=== PATIENT | female | born 1965 | race Caucasian/White ===

== ENCOUNTER 2020-05-28 16:54 | Emergency (ER) | payer OTHER, SELFPAY ==
--- NOTE | ~2020-05-28 | CT_ITS ---
EXAMINATION: CT brain wo con DATE: 05/28/2020 17:33 INDICATION: Fall. Laceration to back of head. TECHNIQUE: Computed tomography (CT) of the head was performed without intravenous contrast. The mA wa s adjusted according to patient size. Iterative reconstruction technique was employed. Exam dose: 60 5.33 mGy-cm total exam DLP. COMPARISON: None FINDINGS: No intracranial mass lesion or hemorrhage, midline shift or mass effect. No subdural or epi dural hematoma. Orbital contents are unremarkable. Included mastoid air cells and paranasal sinuses are unremarkable. No fracture or bone destruction of the cranial vault. IMPRESSION: No significant abnormality Reviewed, dictated and finalized at [facility]. Reviewed, dictated and finalized at [facility]. IMPRESSION: No significant abnormality
[2020-05-28 16:51] VITALS: BP 121/71; PULSE 107; RESP 18; TEMP 37.4; O2SAT 97
--- NOTE | 2020-05-28 17:00 | ED.FALL ---
HPI - Fall General Chief Complaint: Fall Stated Complaint: Fall - head lac Source: patient Mode of arrival: EMS Limitations: no limitations History of Present Illness HPI Narrative: Patient is a 54-year-old female who presents to emergency department for evaluation of posterior head injury noting that she slipped fell striking the head denies loss of consciousness syncope notes posterior headache denied cervical spine tenderness or any other spinal or extremity injury patient notes laceration to the posterior scalp denies anticoagulant use. Related Data Home Medications Medication Instructions Recorded Confirmed insulin glargine [Basaglar KwikPen 15 unit SUBCUT BID 05/28/20 05/28/20 U-100 Insulin] simvastatin 20 mg PO HS 05/28/20 Allergies Allergy/AdvReac Type Severity Reaction Status Date / Time codeine Allergy Rash Verified 05/28/20 17:03 Review of Systems Review of Systems: All systems reviewed & are unremarkable except as noted in HPI and below PMFSH Past Medical History Medical History (Updated 05/28/20 @ 18:06 by Ez Saldivar PA-C) Diabetes mellitus Social History Social History (Updated 05/28/20 @ 17:01 by Ez Saldivar PA-C) Smoking status: Never smoker Gender identity (if verbalized by the patient): Female Exam Narrative: Exam Narrative: GENERAL: Well-appearing, well-nourished, and in no acute distress. HEAD: Normocephalic, 1 cm posterior scalp laceration EYES: PERRLA and EOMI. ENT: Nares clear, no rhinorrhea or epistaxis. Mucous membranes moist. Oropharynx without tonsillar hypertrophy exudate or other lesions. NECK: Supple. No adenopathy or masses. CHEST: Clear to auscultation. No respiratory distress. No wheezes rales or rhonchi HEART: Regular rate and rhythm. No murmur heard. EXTREMITIES: Normal range of motion. No edema. No cervical thoracic or lumbar tenderness SKIN: Warm, dry, no rash. NEURO: No focal deficits. Alert and oriented x3. Cranial nerves II through XII grossly intact PSYCH: Normal mood and affect. Course Vital Signs Vital signs: Vital Signs Temperature 99.4 F 05/28/20 16:51 Pulse Rate 107 H 05/28/20 16:51 Respiratory Rate 18 05/28/20 16:51 Blood Pressure 121/71 05/28/20 16:51 Pulse Oximetry 97 05/28/20 16:51 Temperature 99.4 F 05/28/20 16:51 Pulse Rate 107 H 05/28/20 16:51 Respiratory Rate 18 05/28/20 16:51 Blood Pressure 121/71 05/28/20 16:51 Pulse Oximetry 97 05/28/20 16:51 Procedures Laceration Laceration 1: Date: 05/28/20 Time: 18:05 Site: scalp Size (cm): 1 Description: linear Depth: simple, single layer ====== Skin Level ====== Skin layer closed with: sunni ====== Subcutaneous Layer ====== ====== Muscle Layer ====== ====== Tendon Layer ====== MDM - Fall MDM Narrative Medical decision making narrative: Patient in the room in no distress aware of case findings treatment plan and diagnosis agreeing to follow-up as direct Discharge Plan Discharge Clinical Impression: Head injury, Laceration of scalp Patient Disposition: Home, Self-Care Condition: Stable Instructions: Antibiotic Form, Laceration (ED), Head Injury (ED) Additional Instructions: Keep wound clean and dry. Do not soak, take baths, or swim until wound is completely healed. If any signs of infection such as redness, swelling, increasing pain, drainage of purulent discharge, streaks up your extremity develop, seek medical attention immediately. Followup with your primary care provider in [7] days for suture removal. [] Prescriptions: No Action simvastatin 20 mg Tablet 20 mg PO HS RF: 0 Basaglar KwikPen U-100 Insulin 100 unit/mL (3 mL) Insulin Pen 15 unit SUBCUT BID RF: 0 Follow-up/Referrals: PHYSICIAN,MARINE ENGINEERING PROFESSOR [Primary Care Provider] - Justa Keene MD [Physician] -
[2020-05-28 18:29] VITALS: BP 101/64; PULSE 72; RESP 16; O2SAT 100
== END 2020-05-28 18:33 | disposition home or self-care (01) ==
PROVIDERS: Emergency Provider Family Medicine
DX: S01.01XA Laceration without foreign body of scalp, initial encounter (principal); E11.9 Type 2 diabetes mellitus without complications; Z79.4 Long term (current) use of insulin; W01.10XA Fall on same level from slipping, tripping and stumbling with subsequent striking against unspecified object, initial encounter
CPT/HCPCS: 12001; 70450; 99284

== ENCOUNTER 2020-06-03 15:42 | Emergency (ER) | payer OTHER, SELFPAY ==
[2020-06-03 15:47] VITALS: BP 126/51; PULSE 102; RESP 12; TEMP 36.9; O2SAT 96
--- NOTE | 2020-06-03 16:40 | ED.GENADULT ---
HPI - General Adult General Chief complaint: Unspecified <Ez Saldivar PA-C - Last Filed: 06/03/20 16:42> Stated complaint: staple removeal <GEORGI Whelan Last Filed: 06/03/20 16:42> Time Seen by Provider: 06/03/20 16:11 <GEORGI Whelan Last Filed: 06/03/20 16:42> Source: patient <Ez Saldivar PA-C - Last Filed: 06/03/20 16:42> Mode of arrival: ambulatory <Ez Saldivar PA-C - Last Filed: 06/03/20 16:42> Limitations: no limitations <Ez Saldivar PA-C - Last Filed: 06/03/20 16:42> History of Present Illness HPI narrative: Patient is a 54-year-old female who presents to emergency department for evaluation of staple needing the removed from the scalp placed roughly a week ago when she fell and hit her head patient notes that she has no symptoms no complaints no pain and would simply like the staple to be removed <Ez Saldivar PA-C - Last Filed: 06/03/20 16:42> Related Data Home medications: Home Medications Medication Instructions Recorded Confirmed insulin glargine [Basaglar KwikPen 15 unit SUBCUT BID 05/28/20 05/28/20 U-100 Insulin] simvastatin 20 mg PO HS 05/28/20 <Ez Saldivar PA-C - Last Filed: 06/03/20 16:42> Allergies/adverse reactions: Allergies Allergy/AdvReac Type Severity Reaction Status Date / Time codeine Allergy Rash Verified 05/28/20 17:03 <Ez Saldivar PA-C - Last Filed: 06/03/20 16:42> Review of Systems Review of Systems: All systems reviewed & are unremarkable except as noted in HPI and below <Ez Saldivar PA-C - Last Filed: 06/03/20 16:42> [facility] Past Medical History Medical History: Medical History Diabetes mellitus <GEORGI Whelan Last Filed: 06/03/20 16:42> Social History Social History: Social History Smoking status: Never smoker Gender identity (if verbalized by the patient): Female <Ez Saldivar PA-C - Last Filed: 06/03/20 16:42> Exam Narrative: Exam Narrative: GENERAL: Well-appearing, well-nourished, and in no acute distress. HEAD: Normocephalic, atraumatic. EYES: PERRLA and EOMI. ENT: Nares clear, no rhinorrhea or epistaxis. Mucous membranes moist. CHEST: Clear to auscultation. No respiratory distress. No wheezes rales or rhonchi HEART: Regular rate and rhythm. No murmur heard. EXTREMITIES: Normal range of motion. No edema. SKIN: Warm, dry, no rash. Single staple with well approximated wound of the scalp which was removed with staple remover NEURO: No focal deficits. Alert and oriented x3. PSYCH: Normal mood and affect. <GEORGI Whelan Last Filed: 06/03/20 16:42> Course Course Emergency Course: Patient in the room in no distress aware of case findings treatment plan and diagnosis <Ez Saldivar PA-C - Last Filed: 06/03/20 16:42> Vital Signs Vital signs: Vital Signs Temperature 36.9 C 06/03/20 15:47 Pulse Rate 102 H 06/03/20 15:47 Respiratory Rate 12 06/03/20 15:47 Blood Pressure 126/51 L 06/03/20 15:47 Pulse Oximetry 96 06/03/20 15:47 Temperature 36.9 C 06/03/20 17:04 Pulse Rate 88 06/03/20 17:04 Respiratory Rate 18 06/03/20 17:04 Blood Pressure 111/80 06/03/20 17:04 Pulse Oximetry 100 06/03/20 17:04 <GEORGI Whelan Last Filed: 06/03/20 16:42> Vital Signs Temperature 36.9 C 06/03/20 15:47 Pulse Rate 102 H 06/03/20 15:47 Respiratory Rate 12 06/03/20 15:47 Blood Pressure 126/51 L 06/03/20 15:47 Pulse Oximetry 96 06/03/20 15:47 Temperature 36.9 C 06/03/20 17:04 Pulse Rate 88 06/03/20 17:04 Respiratory Rate 18 06/03/20 17:04 Blood Pressure 111/80 06/03/20 17:04 Pulse Oximetry 100 06/03/20 17:04 <Billie Tovar MD - Last Filed: 06/03/20 19:13> Medical Decision Making [facility] Narrative
[2020-06-03 17:04] VITALS: BP 111/80; PULSE 88; RESP 18; TEMP 36.9; O2SAT 100
== END 2020-06-03 17:05 | disposition home or self-care (01) ==
PROVIDERS: Emergency Provider Emergency Medicine; PCP Family Medicine
DX: S01.01XD Laceration without foreign body of scalp, subsequent encounter (principal); W19.XXXD Unspecified fall, subsequent encounter; E11.9 Type 2 diabetes mellitus without complications
CPT/HCPCS: 99281